=== PATIENT | female | born 1995 | race Caucasian/White ===

== ENCOUNTER 2020-07-19 10:31 | Inpatient (IN) | payer OTHER ==
[~2020-07-19] VITALS: Ht 167.6 cm; Wt 132.4 kg
[2020-07-19] VITALS (11 sets, daily range): BP systolic 122–152; BP diastolic 57–83
[2020-07-19 12:32] LABS: HEMATOCRIT 33.3 % (36.0-47.0); HEMOGLOBIN 10.3 g/dl (12.0-15.5); MEAN CORPUSCULAR HEMOGLOBIN 26.1 pg (27.0-33.0); MEAN CORPUSCULAR HGB CONC 30.9 g/dl (32.0-36.5); MEAN CORPUSCULAR VOLUME 84.3 fl (80.0-96.0); PLATELET COUNT, AUTOMATED 204 10^3/uL (150-450); RED BLOOD COUNT 3.95 10^6/uL (4.00-5.40); WHITE BLOOD COUNT 7.4 10^3/uL (4.0-10.0)
[2020-07-19] MEDS ORDERED: ZOLO50TA PO (12:50)
[2020-07-19] MEDS ORDERED: miSOPROStol 50 MCG 1/2 TAB (S0191) PO ONE (13:45)
--- NOTE | 2020-07-19 14:49 | HPEPDOC ---
Obstetrical History & Physical General Date of Admission Jul 19, 2020 at 10:31 History of Present Illness 24 yo at 40+1 weeks gestation by LMP of [id number] c/w 12+2 week US [id number] presents to L&D today for an IOL for Class III obesity (BMI 47). Ms. Anguiano reports feeling well today and has no complaints. She denies any vaginal bleeding, pelvic pain, leakage of fluid. She endorses movement. Chief Complaint: Induction of labor Information Provided By: Patient Age: 24 : 2 Term: 1 Pre-term: 0 Abortions: 0 Livin Care Care: Good Care Dating Final EDC: Jul 18, 2020 Final EDC for Daily Update: Jul 18, 2020 Final EDC by: LMP (LMP of [id number] set TEGAN Of [id number]), 1st trimester (US) (12+2 week US on [id number] c/w LMP dating. TEGAN remains [id number].) Antepartum Course Diagnos(e)s Class III obesity (BMI 47) Varicella Non immune --> will vaccinate Rh negative --> has received rhogam Depression/anxiety with history of suicide attempt --> sees and takes Zoloft and is stable at this time Past Medical History Past Obstetrical History : Past Obstetrical History: Multigravida ( X1 in 2015 after late term IOL. Pelvis proven to 8 lbs.) Complications: No MEDIA MANAGER History: No pertinent history Past Medical History Medical History Depression/Anxiety with history of suicide attempt --> stable with counseling and zoloft Obesity Rh negative Surgical History: Denies/None Family History Significant Family History: No pertinent family hx Social History Marital Status: Family situation: Spouse/partner home Psychosocial History: Anxiety, Depression (Stable on zoloft and with counseling), Prior suicide attempt * Smoker: non-smoker Alcohol: Denies Drugs: denies Abuse Violence Screening Have you been hit/kicked/slapp: No Have you been sexually assault: No Imunizations Tdap status: current Influenza Status: needs Allergies Coded Allergies: No Known Allergies (Unverified , 07/19/20) Medications Scheduled Sertraline Hcl (Zoloft) 50 Mg Tablet, 1 TAB PO DAILY Physical Examination Physical Examination GENERAL: Alert and oriented times three. ABDOMEN: Gravid and non-tender to touch. FETUS: Is vertex (VTX) by sterile vaginal examination (SVE) EXTREMITIES: No edema. Vital Signs/I&O Vital Signs Date Time Temp Pulse Resp B/P (MAP) Pulse Ox O2 Delivery O2 Flow Rate FiO2 07/19/20 13:18 67 18 140/64 (89) 07/19/20 13:01 97.5 98 Room Air Laboratory Data 24H LABS Laboratory Tests 2 07/19/20 11:06: Serology Scanned Report Hepatitis B Testing 07/19/20 12:17: Nucleated Red Blood Cells % (auto) 0.0, Syphilis Serology NONREACTIVE CBC/BMP Laboratory Tests 07/19/20 12:17 Urine Culture: No Growth Pertinent Laboratoy Data Blood Type: A- RBC Antibody Screen: Negative HIV: Negative Hepatitis B: Negative Hepatitis C: Unknown Rapid Plasma Reagin: Nonreactive Rubella: Immune Varicella: Nonreactive Chlamydia/Gonorrhea: Negative Group B Streptococcus: Negative Quad Screen Test: Unknown Cystic Fibrosis: Negative Glucose Tolerance Test: 171 (1hr GTT 171, 3hr GTT normal) Anatomy Ultrasound Placenta Location: Anterior Normal Anatomy: Yes Placenta Previa: No Steroid Therapy Steroid Therapy: No Vaginal Examination Dilation: 1cm Effacement: 50% Station: -3 Cervical Consistency: Medium Cervical Position: Posterior Presentation: Cephalic presentation Position: Vertex (occiput) Assessment Heart Rate (FHR): 130 Variability: Moderate Accelerations: Positive Decelerations: None Tocometer Contractions: No Assessment/Plan Assessment 24 yo at 40+1 weeks gestation here today for IOL for class III obesity (BMI 47). Plan Admit for IOL. Apply IV fluids when necessary. GBS negative. Cervix unfavorable. Will start IOL with PO cytotec. Likely will try to place sy bulb later. Regular diet. Analgesia and anesthesia as desired. Candidate for epidural when in active labor. Anticipate . Blade Pollock, DO Labor and Delivery Counseling Vaginal / Operative vaginal delivery / C section counseling We will deliver your baby through the vagina with possible assistance of forceps or vacuum device if needed for maternal or indications. Forceps and vacuum are devices that can assist with vaginal delivery when normal pushing efforts cannot achieve delivery on their own or when delivery is needed in an emergency for baby's well-being. Medications may be required to induce or augment (help) your labor in order to achieve a vaginal delivery. An episiotomy may be required to help your baby to delivery vaginally. You may also require repair of any lacerations or tears of your vagina or vulva that are caused by delivery. In some cases, emergencies can occur that require an emergency section delivery so quickly that there may not be enough time to stop and complete consent forms for section. Understand that if this occurs, your providers will discuss the need for a section with you before they proceed with surgery. section is the delivery of your baby through an incision in your abdomen. In some situations, section may be safer to mom and baby than continuing labor and is only performed when clinically indicated. Risks of vaginal delivery include but are not limited to: Bleeding, infection, injury to the vagina, pelvic structures, injury to baby, damage to the uterus, reactions to anesthesia, uterine rupture, risk of hysterectomy for life threatening bleeding, or . Medications used to induce or augment labor may increase your risk for infection, uterine tachysystole, uterine rupture, heart rate abnormalities, need for emergency delivery or possible hysterectomy, and hemorrhage. Additional risks for use of forceps and vacuum include: increased risk of perineal and vaginal lacerations, risk of urinary or bowel incontinence, increased risk of injury to baby with bruising, scratches, hematomas on the head, or intracranial bleeding. Ms. Anguiano appears to understand these risks and elects to proceed with IOL. She also consents to a blood transfusion if necessary. DO JOSE Bojorquez CHRISTOPHER J. DO Jul 19, 2020 14:49
[2020-07-19] MEDS ORDERED: ONDANSETRON 4MG/2ML VIAL IV PRN (19:45)
[2020-07-19] MEDS ORDERED: BUTORPHANOL 2 MG/ML INJ (J0595) IV PRN (19:45)
[2020-07-19] MEDS ORDERED: OXYTOCIN DRIP 30 UNITS in IV 1 EA IV SCH (22:45)
[2020-07-19] MEDS: LR 1,000 ML IV SCH (23:10)
[2020-07-20 00:10] VITALS: BP 132/67
[2020-07-20 00:40] VITALS: BP 128/67
[2020-07-20 01:09] VITALS: BP 130/78
[2020-07-20 02:10] VITALS: BP 130/77
--- NOTE | 2020-07-20 04:16 | IPNPDOC ---
Text Note Date of Service The patient was seen on 07/20/20. NOTE Garcia bulb was placed at ~1900 this evening. It was then expelled spontaneously around ~2230. Pitocin was initiated. Currently at 10mU. Melinda received Stadol approximately 2 hours ago for pain. She now reports significantly increased discomfort. Cervix: /-1. AROM performed productive of a small amount of bloody fluid. FHR review: BL 120, moderate variability, no accels, +early decels, possible variable decels as well. Cat II tracing, but overall reassuring. Last blood pressure readings 160 and 180 systolic. These don't appear to be accurate as she is laying on her arm. Melinda is progressing well. Continue with pitocin. DO Phill VS,Bertin, I+O VSBertin, I+O Laboratory Tests 07/19/20 12:17 Vital Signs Date Time Temp Pulse Resp B/P (MAP) Pulse Ox O2 Delivery O2 Flow Rate FiO2 07/20/20 02:10 75 130/77 (94) 07/20/20 01:55 18 07/19/20 16:09 97.8 07/19/20 13:01 98 Room Air IRIS GARCIA DO Jul 20, 2020 04:16
[2020-07-20] MEDS ORDERED: OXYTOCIN DRIP 30 UNITS in IV 1 EA IV SCH (05:06)
--- NOTE | 2020-07-20 05:13 | DNPDOC ---
[facility] Delivery Note Delivery Note DATE OF DELIVERY: 20Jul2020 at ~0445 PREDELIVERY DIAGNOSIS: 40+2 weeks gestation and IOL for class III obesity POST DELIVERY DIAGNOSIS: Delivered. PROCEDURE: Spontaneous vaginal delivery IMPREGNATOR: Dr. Pollock ANESTHESIA: IV analgesia approximately 3 hours before delivery ESTIMATED BLOOD LOSS: 200 mL. FINDINGS: 8 pound 13 ounce male infant, Score 7/9 DELIVERY SUMMARY: Called to room for delivery. The bed was broken down and A shley was prepped. With excellent effort over about 5 minutes of pushing, her baby delivered. Presentation was CARLA with restitution to ROT. The left anterior shoulder delivered with gentle guidance followed easily by the remainder of the body. The infant was dried and stimulated on the field and a bulb suction was used. Terminal meconium was noted with delivery. The was placed on the maternal abdomen and cried vigorously. The three vessel umbilical cord was then clamped and cut by me after appropriate time delay. The bladder was drained with an in and out catheter. Third stage was then completed with gentle traction on the cord and it was productive of an intact placenta. The uterus was firmed with massage and pitocin was administered IV bolus. Inspection of the cervix, vagina, labia, and perineum revealed no lacerations. The fundus was palpated again and was firm. Sponge, instrument, and needle counts were correct X2. Mother and stable when I left the room. DO JOSE Bojorquez CHRISTOPHER J. DO Jul 20, 2020 05:13
[2020-07-20] MEDS ORDERED: ACETAMINOPHEN 500 MG TAB PO PRN (05:15)
[2020-07-20] MEDS ORDERED: IBUPROFEN 600MG TAB PO PRN (05:15)
[2020-07-20] MEDS ORDERED: BENZOCAINE 20% HEMORRHOIDAL OINTMENT 28GM TUBE TOP PRN (05:15)
[2020-07-20] MEDS ORDERED: DOCUSATE SODIUM 100MG CAPSULE PO PRN (05:15)
[2020-07-20] MEDS ORDERED: ACETAMINOPHEN TAB 650MG DOSE (2X325MG) PO PRN (05:15)
[2020-07-20] MEDS ORDERED: RHOGAM 300 MCG (1500 IU) INJ (J2790) IM SCH (05:15)
[2020-07-20] MEDS ORDERED: IBUPROFEN 800 MG TAB PO PRN (05:15)
[2020-07-20] MEDS ORDERED: MEASLES,MUMPS,RUBELLA VACCINE INJ (MMR-II) (90707) SC SCH (05:15)
[2020-07-20] MEDS ORDERED: ONDANSETRON 4MG/2ML VIAL IV PRN (05:15)
[2020-07-20] MEDS: LR 1,000 ML IV SCH (06:34)
[2020-07-20 06:47] VITALS: BP 143/79
[2020-07-20] MEDS: PRENATAL VITAMINS CHEWABLE TABLET PO SCH (08:18)
[2020-07-20 18:00] VITALS: BP 128/60
[2020-07-21 06:00] VITALS: BP 126/71
[2020-07-21] MEDS: LR 1,000 ML IV SCH ×2 (07:04→07:05)
[2020-07-21] MEDS: PRENATAL VITAMINS CHEWABLE TABLET PO SCH (08:11)
--- NOTE | 2020-07-21 08:38 | IPN ---
PROGRESS NOTE DATE: 07/21/2020 SUBJECTIVE: This patient was admitted for induction of labor at 41 weeks of gestation. Had a spontaneous delivery of a male 8 pounds 13 ounces. Apgars of 7 and 9 at one and five minutes respectively. She is a class 3 obesity patient with BMI of 47. She has depression and anxiety and is on med with Zoloft. She is seeing behavioral health and is doing well on her medication and support from behavioral health. OBJECTIVE: Today she is doing well. Her blood pressure is 126/71, respirations are 20, pulse 69, temperature is 97.4. LABORATORY DATA: Her admitting hemoglobin 10.3, hematocrit 33.3, and platelets are 204,000. ASSESSMENT AND PLAN: Presently there are issues with the baby and feeding and working on same in regards to the baby getting enough nutrition. We expect a plan for discharge for tomorrow morning. Pediatrics and neonatology will evaluate the baby's weight gain or loss and decision regarding discharge. The patient has her medications at [place]. She has a six week checkup at [facility]. All questions were answered, 20 minute discussion. Patient will be reviewed again after the baby is discharged.
[2020-07-21] MEDS ORDERED: ACET1TAB55 PO (10:48)
[2020-07-21] MEDS ORDERED: IBUP80TA PO (10:48)
--- NOTE | 2020-07-21 10:50 | DS.PDOC ---
Discharge Summary General Date of Admission Jul 19, 2020 at 10:31 Date of Discharge Jul 21, 2020 Discharge Summary HOSPITAL COURSE: Ms. Anguiano is a 24 yo G2 now P2 who underwent an uncomplicated on 19Jul2020 after being admitted for an IOL. Her course was unremarkable. On her day of discharge she met all appropriate discharge criteria. She was ambulating, voiding, tolerating a regular diet, and had minimal lochia. DISCHARGE MEDICATIONS: Please see below. ALLERGIES: Please see below. PHYSICAL EXAMINATION ON DISCHARGE: See today's progress note from Dr. Galindo. LABORATORY DATA: Please see below. ACTIVITY: Pelvic rest for 6 weeks DIET: Regular DISCHARGE PLAN: Discharge home DISPOSITION: Discharge home on 21Jul2020 . DISCHARGE INSTRUCTIONS: 1. Nothing in the vagina for 6 weeks ITEMS TO FOLLOWUP ON ON OUTPATIENT: 1. Call to schedule a visit for 6 weeks post delivery DISCHARGE CONDITION: Stable. TIME SPENT ON DISCHARGE: Greater than 20 minutes. Iris Pollock DO Vital Signs/I&Os Vital Signs Date Time Temp Pulse Resp B/P (MAP) Pulse Ox O2 Delivery O2 Flow Rate FiO2 07/21/20 06:00 97.4 69 20 126/71 (89) 07/20/20 18:00 99 Room Air I&O- Last 24 Hours up to 6 AM 07/21/20 06:00 Output Total 400 ml Balance -400 ml Discharge Medications Scheduled Sertraline Hcl (Zoloft) 50 Mg Tablet, 1 TAB PO DAILY, (Reported) Scheduled PRN Acetaminophen (Acetaminophen) 325 Mg Tablet, 650 MG PO Q4HP PRN for PAIN LEVEL 1-5 Ibuprofen (Ibuprofen) 800 Mg Tablet, 800 MG PO Q8HP PRN for PAIN LEVEL 6-10 Allergies Coded Allergies: No Known Allergies (Unverified , 07/19/20) IRIS POLLOCK DO Jul 21, 2020 10:50
== END 2020-07-21 12:05 | disposition home or self-care (01) | DRG 807 ==
LOC: M LDI 10:31 → M OBS 07-20 06:28
PROVIDERS: ADMIT Obstetrics & Gynecology; ATTEND Obstetrics & Gynecology
PROC: 3E0P7GC Introduction of Other Therapeutic Substance into Female Reproductive, Via Natural or Artificial Opening (ICD-10-PCS; 2020-07-19)
PROC: 10E0XZZ Delivery of Products of Conception, External Approach (ICD-10-PCS; principal; 2020-07-20)
PROC: 10907ZC Drainage of Amniotic Fluid, Therapeutic from Products of Conception, Via Natural or Artificial Opening (ICD-10-PCS; 2020-07-20)
DX: O99.214 Obesity complicating childbirth (principal); Z37.0 Single live birth; O48.0 Post-term pregnancy; Z3A.40 40 weeks gestation of pregnancy; O99.344 Other mental disorders complicating childbirth; E66.9 Obesity, unspecified; F32.9 Major depressive disorder, single episode, unspecified; F41.9 Anxiety disorder, unspecified

== ENCOUNTER 2020-11-02 09:48 | Day surgery (SDC) | payer OTHER ==
[~2020-11-02] VITALS: Ht 167.6 cm; Wt 119.7 kg
[~2020-11-02 09:48] MED LIST: ACET1TAB55 PO; IBUP80TA PO; LIDOCAINE 1% MDV 20ML VIAL SQ PRN; LR 1,000 ML IV ONE; ZOLO50TA PO
[2020-11-02 10:25] LABS: HEMATOCRIT 36.7 % (36.0-47.0); HEMOGLOBIN 11.4 g/dl (12.0-15.5); MEAN CORPUSCULAR HEMOGLOBIN 26.7 pg (27.0-33.0); MEAN CORPUSCULAR HGB CONC 31.1 g/dl (32.0-36.5); MEAN CORPUSCULAR VOLUME 85.9 fl (80.0-96.0); PLATELET COUNT, AUTOMATED 297 10^3/uL (150-450); RED BLOOD COUNT 4.27 10^6/uL (4.00-5.40)
[2020-11-02 10:53] LABS: HCG, SERUM QUALITATIVE NEGATIVE (NEGATIVE)
[2020-11-02] MEDS ORDERED: BUPIVACAINE HCL 0.5% 30 ML VIAL As Ordered ONE (11:05)
[2020-11-02] MEDS ORDERED: SUGAMMADEX SODIUM 500 MG/5 ML VIAL (BRIDION) As Ordered ONE (11:06)
[2020-11-02] MEDS ORDERED: METOCLOPRAMIDE INJ 10MG/2ML VIAL (J2765 PER 1) As Ordered ONE (11:06)
[2020-11-02] MEDS ORDERED: KETOROLAC 60MG 2ML VIAL As Ordered ONE (11:06)
[2020-11-02] MEDS ORDERED: propofoL 200 MG/20 ML VIAL As Ordered ONE (11:06)
[2020-11-02] MEDS ORDERED: fentaNYL 100 MCG/2 ML INJECTION (J3010) As Ordered ONE (11:06)
[2020-11-02] MEDS ORDERED: ONDANSETRON 4MG/2ML VIAL As Ordered ONE (11:06)
[2020-11-02] MEDS ORDERED: LIDOCAINE 2% 100MG/5ML SDV (FOR ANES.) As Ordered ONE (11:06)
[2020-11-02] MEDS ORDERED: ROCURONIUM BROMIDE 50 MG/5 ML VIAL As Ordered ONE (11:06)
[2020-11-02] MEDS ORDERED: MIDAZOLAM INJ 2MG/2ML VIAL (J2250 PER 1MG) As Ordered ONE (11:07)
[2020-11-02] MEDS ORDERED: SILVER NITRATE APPLICATOR As Ordered ONE (12:10)
--- NOTE | 2020-11-02 14:38 | RO ---
OPERATIVE NOTE DATE OF OPERATION: 11/02/2020 PREOPERATIVE DIAGNOSIS: Satisfied parity. POSTOPERATIVE DIAGNOSIS: Satisfied parity. PROCEDURE: Laparoscopic bilateral salpingectomy. SURGEON: Blade Pollock DO DYE WEIGHER: Kranthi Espinoza DO ANESTHESIA: General. IV FLUIDS: 800 mL LR. URINE OUTPUT: 100 mL. EBL: 3 mL. ANTIBIOTICS: None indicated. OPERATIVE FINDINGS: Normal appearing uterus, ovaries and fallopian tubes bilaterally. Normal liver, gastric curve, normal gallbladder. COMPLICATIONS: None. DESCRIPTION OF PROCEDURE: The risks and benefits, indications, and alternatives to the procedure were reviewed with the patient and informed consent was obtained. The patient was taken to the operating room and general anesthesia was obtained without difficulty. The patient was then placed in the lithotomy position using gel padded Lenny stirrups. The patient's arms were then gently tucked to the sides with padding. The patient was then prepped and draped in the usual sterile fashion. A surgical time out was then performed and the patient's identity and planned procedure verified with the operative team. A Garcia catheter was placed first to drain the bladder. An [place] uterine manipulator was then placed into the uterus as a means to manipulate the uterus. Gloves were then exchanged and attention was turned to the patient's abdomen where 5 mm skin incision was made in the inferior aspect of the umbilicus after injection of Marcaine. A 5 mm trocar and sleeve were then carefully introduced into the peritoneal cavity under direct visualization at 90-degree angle while tenting up the abdominal wall. Intraperitoneal placement was confirmed under direct visualization and entry pressure was noted to be less than 5 mmHg. A pneumoperitoneum was then obtained with several liters of CO2 gas. Upon entry into the peritoneal cavity, structures immediately below the incision were inspected and found to be free of injury. A survey of the patient's abdomen and pelvis was notable for normal appearing liver, gallbladder, stomach, and gastric curve. The uterus, fallopian tubes, and ovaries were normal in appearance. Two additional trocars, one in the left lateral aspect of the abdominal wall and one in the right lateral aspect of the abdominal wall were then placed under direct laparoscopic visualization after injection of Marcaine and skin incisions were made with the scalpel. Using the LigaSure electrocautery, the left fallopian tube was dissected away from the mesosalpinx from the fimbriated end to the isthmic portion taking care to cauterize any vasculature within the mesosalpinx. The fallopian tube was then amputated at its connection to the uterine cornua and removed from the patient's abdomen. Attention was then turned to the patient's right fallopian tube which was lifted by blunt grasper and removed in similar fashion with the LigaSure electrocautery. The right fallopian tube was then amputated and removed from the abdomen. Specimens were sent to pathology for review. All operative sites were inspected and noted to be hemostatic. The gas was then turned off and all CO2 was removed from the patient's abdomen. The patient was then given three manual breaths to assist with desufflation of the abdomen. All remaining ports were then removed under direct visualization and there was no bleeding seen from the trocar sites. The skin incisions were then closed with 4-0 Monocryl suture. All incisions were then covered with Dermabond. The uterine manipulator was then removed and excellent hemostasis was noted at the cervix. All instruments were then confirmed to have been removed from the vagina. The patient's Garcia catheter was removed. At the completion of the case, the sponge, instrument and needle counts were correct x2. The patient tolerated the procedure well. She was cleansed and dried, taken out of lithotomy position, awakened from anesthesia and taken to the PACU in stable condition. FABIAN
[2020-11-02 14:55] VITALS: BP 106/58
== END 2020-11-02 13:45 | disposition home or self-care (01) ==
LOC: M SDC 09:48
PROVIDERS: ATTEND Obstetrics & Gynecology
DX: Z30.2 Encounter for sterilization (principal); F32.9 Major depressive disorder, single episode, unspecified; Z79.899 Other long term (current) drug therapy
CPT/HCPCS: 36415; 58661; 84703; 85027; 88302; J1885; J2250; J2405; J2765; J3010

== ENCOUNTER → 2021-08-24 | Outpatient (REF) | payer OTHER ==
[~2021-08-24] MED LIST changes: -LIDOCAINE 1% MDV 20ML VIAL SQ PRN; -LR 1,000 ML IV ONE
== END ==
LOC: M WUC 21:30
PROVIDERS: ATTEND Physician Assistant
DX: J02.9 Acute pharyngitis, unspecified (principal)